=== PATIENT | female | born 1980 | race Caucasian/White ===

== ENCOUNTER → 2016-08-28 | Outpatient (CLI) | payer OTHER ==
--- NOTE | 2016-08-28 15:53 | DI ---
XR ABDOMEN KUB UPRIGHT,08/28/2016 2:38 PM: Clinical History: Right upper quadrant abdominal pain Previous Exam: March 15, 2011 Findings: 4 views of the abdomen are obtained, and demonstrate a nonobstructive bowel gas pattern. Postsurgical changes are seen consistent with prior cholecystectomy. The lung bases are clear. There is no subdia phragmatic free air. Multiple phleboliths are seen within the deep pelvis. Impression: No acute disease.
[2016-08-28 15:54] LABS: HEMOGLOBIN 15.4 g/dL (12.0-16.0); MEAN CORPUSCULAR HEMOGLOBIN 29.9 PG (27-31); MEAN CORPUSCULAR VOLUME 85.4 FL (81-99); MEAN PLATELET VOLUME 10.4 FL (7.4-12.2); RED BLOOD COUNT 5.15 10^6/uL (4.20-5.40)
[2016-08-28 16:01] LABS: BLOOD UREA NITROGEN 14 mg/dL (7-22); CALCIUM 9.8 mg/dL (8.7-10.7); EST GLOMERULAR FILTRATION > 60 (>60 ml/min/1.73m(2)); SERUM ALBUMIN 4.9 g/dL (3.5-4.8)
[2016-08-28 16:42] LABS: LIPASE 146 IU/L (23-300)
[2016-08-28 17:09] LABS: BILIRUBIN,URINE NEGATIVE (NEG); CLARITY,URINE CLEAR (CLEAR); COLOR,URINE YELLOW; GLUCOSE, URINE (UA) NEGATIVE (NEG); NITRATE,URINE NEGATIVE (NEG); OCCULT BLOOD,URINE SMALL (NEG); PH,URINE 5.5 (5.0-8.5); PROTEIN,URINE NEGATIVE (NEG); UROBILINOGEN,URINE 0.2 EU/dL (0.2)
[2016-08-28 17:19] LABS: BACTERIA,URINE RARE; SQUAMOUS EPITHELIAL CELL,UR FEW; URINE SAMPLE TYPE VOIDED SPECIMEN; URINE SPECIFIC GRAVITY - MAN 1.022
== END ==
LOC: MOB RAD 14:44
PROVIDERS: ATTEND Family Medicine
DX: R10.11 Right upper quadrant pain (principal); I10 Essential (primary) hypertension; K21.9 Gastro-esophageal reflux disease without esophagitis; Z87.19 Personal history of other diseases of the digestive system
CPT/HCPCS: 36415; 74020; 80053; 81001; 82150; 83690; 85027

== ENCOUNTER → 2016-09-04 | Outpatient (CLI) | payer OTHER ==
--- NOTE | 2016-09-04 11:05 | DI ---
CT ABDOMEN/PELVIS W/O CONTRAST,09/04/2016 9:35 AM: Clinical History: Right upper quadrant abdominal pain. Previous Exam: None at this facility. Findings: Multiple helically acquired CT images are obtained through the abdomen and pelvis without contrast, a nd demonstrate a normal-appearing urinary bladder. The appendix is within normal limits. There is no mesenteric lymphadenopathy. The adrenals, kidneys and spleen are unremarkable. Patient is status post cholecystectomy. There is a calcified granuloma within the right lobe of the liver invol ving the hepatic dome. Skeletal structures are also unremarkable except for degenerative disc disease at L5/S1. There is no intrahepatic ductal dilatation. Limited evaluation of the stomach, small bowel and colon demonstrates a normal appearance. Impression: No acute intra-abdominal pathology.
== END ==
LOC: CT 09:29
PROVIDERS: ATTEND Family Medicine
DX: R10.11 Right upper quadrant pain (principal)
CPT/HCPCS: 74176

== ENCOUNTER 2016-09-21 09:46 | Day surgery (SDC) | payer OTHER ==
[2016-09-21] MEDS ORDERED: LIDOCAINE 2% VISCOUS(20 MG/1 ML) - 15 ML UD CUP PO ONE (10:10)
[2016-09-21] MEDS ORDERED: fentaNYL Inj 100 MCG/2 ML VIAL ONE (10:11)
[2016-09-21] MEDS ORDERED: Lactated Ringers 1,000 ML PRIMARY IV ONE (10:36)
[2016-09-21] MEDS ORDERED: LIDOCAINE W/ SODIUM BICARB 0.5 ML SYR ONE (10:36)
--- NOTE | 2016-09-21 11:26 | GEN.OPNOTE ---
EGD / Colonoscopy Report Surgery Date: 09/21/16 Preoperative Diagnosis: Abdominal pain and diarrhea Postoperative Diagnosis: Abdominal Pain and diarrhea. Possible bile reflux Procedure: Colonoscopy. EGD with biopsy Surgeon: Raheel Hoyos MD Anesthesia Provider: Dangelo Ocampo CRNA Anesthesia Type: MAC Indications: Patient has diarrhea and abdominal pain EGD Findings: Esophagus: Olympus video EGD scope inserted the posterior pharynx. Guided injected visualization to the esophagus. Patient esophagus was completely normal. GE Junction : GE junction proximal be 40 cm from incisors Fundus : Scope retroflexed on itself revealing a normal-appearing fundus Body : Body the stomach was within normal limits Prepyloric : Prepyloric area was within normal limits random biopsies taken Small Intestine : Small bowel appear to be normal but random biopsies taken rule out any abnormal pathology. Patient did have a large amount of bile seen in the stomach and reflux into the stomach A lubricated flexible upper endoscope was inserted and passed through the esophagus and stomach into the duodenum. Colonoscopy Findings: Prep : [] Cecum : [] Ascending : [] Transverse : [] Sigmoid : [] Rectum : [] Digital Rectal Exam : [] A lubricated flexible colonoscope was inserted and passed to the blind end of the cecum. Additional Details: We will do a trial Bentyl to see if this alleviates her pain. This does not help we'll start her on Carafate
--- NOTE | 2016-09-21 11:28 | GEN.OPNOTE ---
Colonoscopy Procedure Note Surgery Date: 09/21/16 Preoperative Diagnosis: Abdominal pain and diarrhea Postoperative Diagnosis: Normal-appearing colon Procedure: Colonoscopy Surgeon: Raheel Hoyos MD Anesthesia Provider: Dangelo Ocampo CRNA Anesthesia Type: MAC Indications: Patient is having abdominal pain and diarrhea.. Patient had an unremarkable EGD Findings: Prep : Good Cecum : Scope was advanced to the cecum. Ileocecal clear identified. Is able to cannulate ileocecal valve and see the terminal ileum, which was normal. Cecum itself was free from disease Ascending : Ascending colon and no polyps ,tumors or cancers no it's inflammatory bowel disease Transverse : Transverse colon was normal no evidence of polyps ,tumors cancers or inflammatory bowel disease Sigmoid : Descending and sigmoid colon were free from disease. No it's inflammatory bowel disease Rectum : Active free from disease Digital Rectal Exam : A lubricated flexible colonoscope was inserted and passed to the blind end of the cecum.
[2016-09-21 12:58] VITALS: TEMP 97.6
[2016-09-21 13:01] VITALS: RESP 16
== END 2016-09-21 11:50 | disposition home or self-care (01) ==
LOC: SDSC 09:46
PROVIDERS: ATTEND Surgery
DX: R10.11 Right upper quadrant pain (principal); R19.7 Diarrhea, unspecified
CPT/HCPCS: 43239; 45378; J2704; J3010; J7120

== ENCOUNTER → 2016-10-22 | Outpatient (CLI) | payer OTHER | LOC: MOB LAB 11:37 | PROVIDERS: ATTEND Nurse Practitioner Women's Health | DX: R53.82 Chronic fatigue, unspecified (principal); Z86.39 Personal history of other endocrine, nutritional and metabolic disease | CPT/HCPCS: 36415; 84443 ==